=== PATIENT | female | born 1965 | race Caucasian/White ===

== ENCOUNTER 2025-03-03 21:45 | Inpatient (IN) | payer MEDICARE, OTHER ==
[~2025-03-03] VITALS: Ht 160 cm; Wt 49.9 kg
[2025-03-03] MEDS ORDERED: CHLO100T17 PO (22:09)
[2025-03-03] MEDS ORDERED: CHLO10TA5 PO (22:09)
[2025-03-03] MEDS ORDERED: ATOR10TA PO (22:09)
[2025-03-03] MEDS ORDERED: ARIP20TA4 PO (22:09)
[2025-03-03] MEDS ORDERED: RISP3TAB5 PO (22:10)
[2025-03-03] MEDS ORDERED: LEVO25TA2 PO (22:10)
[2025-03-03] MEDS ORDERED: LITH300C2 PO (22:10)
[2025-03-03] MEDS ORDERED: OLAN10TA73 PO (22:10)
[2025-03-03] MEDS ORDERED: FAMO10TA41 PO (22:10)
[2025-03-03] MEDS ORDERED: ROPI1TAB6 PO (22:10)
[2025-03-03] MEDS ORDERED: DIVA500T2 PO (22:10)
[2025-03-03] MEDS ORDERED: SERT50TA PO (22:10)
[2025-03-03] MEDS ORDERED: OLAN20TA3 PO (22:10)
[2025-03-03] MEDS ORDERED: LUMA42CA PO (22:10)
[2025-03-03] MEDS ORDERED: TRAZ150T75 PO (22:10)
[2025-03-03] MEDS ORDERED: PROP10TA10 PO (22:10)
[2025-03-03 22:33] LABS: CREATININE 0.5 mg/dL (0.6-1.3); SODIUM SERUM 139.0 mmol/L (136-145); UREA NITROGEN, BLOOD 11.0 mg/dL (7-18)
[2025-03-04] MEDS: BLOOD SUGAR DIAGNOSTIC 1 EACH STRIP VI ONE (00:30)
[2025-03-04] MEDS: TEMAZEPAM 7.5 MG CAPSULE PO PRN (02:54)
[2025-03-04] MEDS: LORAZEPAM 0.5 MG TABLET PO PRN ×2 (04:52→18:51)
[2025-03-04] MEDS ORDERED: BUSP10TA3 PO (04:57)
[2025-03-04] MEDS: MAGNESIUM HYDROXIDE 30 ML LIQUID UDC PO PRN (06:27)
[2025-03-04 08:16] VITALS: BP 144/82; TEMP 97.7; O2SAT 98
[2025-03-04] MEDS ORDERED: GABA300C PO (11:27)
[2025-03-04] MEDS ORDERED: METO25TA6 PO (11:28)
[2025-03-04] MEDS ORDERED: MULT-1119 PO (11:30)
[2025-03-04] MEDS: OLANZAPINE 10 MG VIAL IM ONE (11:58)
[2025-03-04] MEDS ORDERED: PROPRANOLOL HCL 10 MG TABLET PO SCH (13:00)
[2025-03-04] MEDS: MULTIVITAMINS,THERAPEUTIC TABLET PO SCH (13:18)
[2025-03-04] MEDS: GABAPENTIN 300 MG CAPSULE PO SCH (13:18)
[2025-03-04] MEDS ORDERED: Medication Not On Formulary EA (Famotidine (Pepcid Ac) 10 MG) PO SCH (17:00)
[2025-03-04 17:40] VITALS: BP 133/79; TEMP 97.7; O2SAT 97
[2025-03-04 20:00] VITALS: BP 123/80; TEMP 98.2; O2SAT 98
[2025-03-04] MEDS ORDERED: ATORVASTATIN 10 MG TABLET PO SCH (21:00)
[2025-03-05 07:52] LABS: PLATELET COUNT (AUTO) 196 K/uL (179-408); RED BLOOD CELL COUNT(AUTO) 4.04 MIL/uL (3.63-4.92); RED CELL DISTRIBUTION WIDTH 14.7 % (12.3-17.7); WHITE BLOOD COUNT (AUTO) 5.6 K/uL (3.8-11.8)
[2025-03-05 08:02] VITALS: BP 102/68; TEMP 98.6; O2SAT 96
[2025-03-05 08:24] LABS: ASPARTATE AMINOTRANSFERASE 12.0 U/L (15-37); CREATININE 0.7 mg/dL (0.6-1.3); GLUCOSE FASTING 93.0 mg/dL (70-115); SODIUM SERUM 142.0 mmol/L (136-145); TOTAL PROTEIN, SERUM 5.9 g/dL (6.4-8.2); UREA NITROGEN, BLOOD 13.0 mg/dL (7-18)
[2025-03-05] MEDS: BENZTROPINE MESYLATE 0.5 MG TABLET PO SCH (08:27)
[2025-03-05] MEDS: METOPROLOL TARTRATE 25 MG TABLET PO SCH (08:31)
[2025-03-05] MEDS ORDERED: LEVOTHYROXINE SODIUM 25 MCG TABLET PO SCH (09:00)
[2025-03-05 16:24] VITALS: BP 131/93; TEMP 98.9; O2SAT 98
[2025-03-05 20:00] VITALS: BP 126/62; TEMP 97.9; O2SAT 99
[2025-03-05] MEDS: ACETAMINOPHEN 325 MG TABLET PO PRN (23:57)
[2025-03-05] MEDS: TEMAZEPAM 7.5 MG CAPSULE PO PRN (23:57)
[2025-03-06 20:23] VITALS: BP 101/63; TEMP 98.1; O2SAT 99
[2025-03-07 08:24] VITALS: BP 101/60; TEMP 98.1; O2SAT 99
[2025-03-07 16:32] VITALS: BP 125/78; TEMP 98.1; O2SAT 99
[2025-03-07] MEDS: DIVALPROEX 125 MG TABLET.DR PO SCH (18:00)
[2025-03-07 20:01] VITALS: BP 141/84; TEMP 98.1; O2SAT 98
[2025-03-08 08:43] VITALS: BP 112/77; TEMP 98.1; O2SAT 99
[2025-03-08 16:53] VITALS: BP 119/70; TEMP 98.1; O2SAT 98
[2025-03-08 20:10] VITALS: BP 104/74; TEMP 98.1; O2SAT 97
[2025-03-09 08:57] VITALS: BP 141/77; TEMP 97.4; O2SAT 97
[2025-03-09] MEDS ORDERED: DIVALPROEX 125 MG TABLET.DR PO SCH (13:00)
[2025-03-09] MEDS: BENZTROPINE MESYLATE 0.5 MG TABLET PO SCH ×2 (14:04→20:16)
[2025-03-09] MEDS: DIVALPROEX 250 MG TABLET.DR PO SCH (14:04)
[2025-03-09 18:36] VITALS: BP 116/67; TEMP 97.6; O2SAT 97
[2025-03-09 20:00] VITALS: BP 129/75; TEMP 99.3; O2SAT 97
[2025-03-10 09:09] VITALS: BP 90/53; TEMP 98; O2SAT 98
[2025-03-10 15:36] VITALS: BP 117/64; TEMP 98; O2SAT 98
[2025-03-10 20:00] VITALS: BP 128/80; TEMP 98.6; O2SAT 99
[2025-03-11 07:33] VITALS: BP 99/64; TEMP 98; O2SAT 99
[2025-03-11 15:31] VITALS: BP 123/75; TEMP 98; O2SAT 96
[2025-03-11 19:53] VITALS: BP 109/68; TEMP 98.7; O2SAT 96
[2025-03-12 08:00] VITALS: BP 107/71; TEMP 98
[2025-03-12] MEDS: DIVALPROEX 500 MG TABLET.DR PO SCH (08:42)
[2025-03-12] MEDS: MIRALAX 17 GM POWD.PACK PO SCH (08:43)
[2025-03-12] MEDS: IBUPROFEN 600 MG TABLET PO PRN (11:35)
[2025-03-12 13:32] LABS: *BILIRUBIN,URIN NEGATIVE (NEGATIVE); *BLOOD, URINE NEGATIVE (NEGATIVE); *CLARITY,URINE CLEAR (CLEAR); *COLOR,URINE YELLOW (YELLOW); *KETONES,URINE NEGATIVE (NEGATIVE); *PROTEIN,URINE NEGATIVE (NEGATIVE); *UROBILINOGEN,URINE 0.2 E.U./dl (NORMAL); LEUKOCYTE ESTERASE ,URINE 2+ (NEGATIVE); NITRITE, URINE NEGATIVE (NEGATIVE); UGLUCOSE NEGATIVE (NEGATIVE)
[2025-03-12 14:11] LABS: SQUAMOUS EPITHELIAL CELL,UR FEW /HPF (NONE SEEN)
[2025-03-12] MEDS: NITROFURANTOIN/NITROFURAN MAC 100 MG CAPSULE PO SCH (14:58)
[2025-03-12 15:43] VITALS: BP 113/70; TEMP 98
[2025-03-12 21:27] VITALS: BP 128/81; TEMP 98.6; O2SAT 97
[2025-03-13 07:59] VITALS: BP 97/66; TEMP 97.6; O2SAT 99
[2025-03-13 16:06] VITALS: BP 112/76; TEMP 97.6; O2SAT 99
[2025-03-13 19:47] VITALS: BP 127/67; TEMP 98.7; O2SAT 99
[2025-03-13] MEDS: GABAPENTIN 300 MG CAPSULE PO SCH (20:18)
[2025-03-14 08:59] VITALS: BP 122/69; TEMP 98.3; O2SAT 98
[2025-03-14] MEDS: GABAPENTIN 300 MG CAPSULE PO SCH (12:47)
[2025-03-14 16:53] VITALS: BP 128/72; TEMP 97.6; O2SAT 99
[2025-03-14] MEDS: MAG HYDROX/AL HYDROX/SIMETH 30 ML LIQUID UDC PO PRN (20:05)
[2025-03-14 20:06] VITALS: BP 120/68; TEMP 98.1; O2SAT 96
[2025-03-15] MEDS: OLANZAPINE 10 MG VIAL IM ONE (10:50)
[2025-03-15] MEDS: BENZTROPINE MESYLATE 1 MG TABLET PO SCH (12:40)
[2025-03-15 13:15] LABS: PLATELET COUNT (AUTO) 247 K/uL (179-408); RED BLOOD CELL COUNT(AUTO) 4.13 MIL/uL (3.63-4.92); RED CELL DISTRIBUTION WIDTH 14.7 % (12.3-17.7); WHITE BLOOD COUNT (AUTO) 6.1 K/uL (3.8-11.8)
[2025-03-15 13:31] LABS: CREATININE 0.6 mg/dL (0.6-1.3); SODIUM SERUM 139.0 mmol/L (136-145); UREA NITROGEN, BLOOD 14.0 mg/dL (7-18)
[2025-03-15 16:31] VITALS: BP 96/61; TEMP 98.1; O2SAT 96
[2025-03-15 19:54] VITALS: BP 134/79; TEMP 98.6; O2SAT 99
[2025-03-15] MEDS: OLANZAPINE 5 MG TABLET PO SCH (20:47)
[2025-03-16 07:41] VITALS: BP 103/62; TEMP 98.7; O2SAT 98
[2025-03-16] MEDS: OLANZAPINE 2.5 MG TABLET PO SCH (08:23)
[2025-03-16 15:15] VITALS: BP 118/75; TEMP 98.7; O2SAT 97
[2025-03-16 19:39] VITALS: BP 140/84; TEMP 98.4; O2SAT 98
[2025-03-17 08:11] VITALS: BP 90/47; TEMP 97.8; O2SAT 96
== END 2025-03-17 12:15 | DRG 885 ==
LOC: ER 21:51 → GPS 23:10
PROVIDERS: ADMIT Psychiatry & Neurology Psychosomatic Medicine; ATTEND Nurse Practitioner Family
DX: F31.9 Bipolar disorder, unspecified (principal); E44.1 Mild protein-calorie malnutrition; N39.0 Urinary tract infection, site not specified; R45.851 Suicidal ideations; E88.09 Other disorders of plasma-protein metabolism, not elsewhere classified; E03.9 Hypothyroidism, unspecified; F60.9 Personality disorder, unspecified; E78.5 Hyperlipidemia, unspecified; Z79.890 Hormone replacement therapy; K21.9 Gastro-esophageal reflux disease without esophagitis; R32 Unspecified urinary incontinence; Z79.899 Other long term (current) drug therapy; I10 Essential (primary) hypertension; E11.9 Type 2 diabetes mellitus without complications; R26.81 Unsteadiness on feet
CPT/HCPCS: 36415; 73620; 73630; 80164; 84443; 85025; 87086; J2358; J3490